=== PATIENT | male | born 1965 | race Caucasian/White ===

== ENCOUNTER → 2016-11-21 | Outpatient (CLI) | payer OTHER | LOC: BMCIMAGING 09:19 | PROVIDERS: ATTEND Podiatrist Foot & Ankle Surgery | DX: M25.571 Pain in right ankle and joints of right foot (principal) ==

== ENCOUNTER 2018-07-16 11:29 | Emergency (ER) | payer OTHER ==
--- NOTE | 2018-07-16 11:46 | EDPHY ---
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 Patient reports that he washed with soap and water. Today at work the radiology techs were concerned that he may get an infection. Denies decreased range of motion, radiation, weakness. Tetanus is current. Modifying Factors: None Comment: ROS: A comprehensive 10 system review of systems is otherwise negative aside from elements mentioned in the history of present illness. MEDICAL/SURGICAL/SOCIAL HISTORY: Medical history: Generally healthy. Does not take any regular medications. Surgical history: Denies Social history: Employed. Never smoked. CONSTITUTIONAL: Pleasant, well-developed, well-nourished adult white male, awake and alert, no obvious distress HEENT: Atraumatic and normocephalic. NECK: supple EXTREMITIES: 2/2 pulses, strength 5/5, left little finger on the pad shows 1.5 cm skin avulsion that is superficial in nature, no active bleeding. No nail involvement. DIP/PIP/MCP flexion/extension intact with good light touch sensation. no deformities, no clubbing, no cyanosis or edema. NEUROLOGICAL: no focal neuro deficits. GCS 15. Light touch sensation intact. SKIN: Warm and dry, no erythema. no rash. Good capillary refill. Source: Patient Exam Limitations: No limitations - Personal History Current Tetanus Diphtheria and Acellular Pertussis (TDAP): Yes - Medical/Surgical History Hx Asthma: No Hx Chronic Respiratory Disease: No Hx Diabetes: No Hx Cardiac Disease: No Hx Renal Disease: No Hx Cirrhosis: No Hx Alcoholism: No Hx HIV/AIDS: No Hx Splenectomy or Spleen Trauma: No Other PMH: denies - Social History Smoking Status: Never smoked Constitutional: Initial Vital Signs Temperature (C) 37.1 C 07/16/18 11:33 Heart Rate 76 07/16/18 11:33 Respiratory Rate 16 07/16/18 11:33 Blood Pressure 121/80 H 07/16/18 11:33 O2 Sat (%) 95 07/16/18 11:33 O2 Delivery Mode Room Air Allergies/Adverse Reactions: No Known Allergies Allergy (Unverified 07/16/18 11:33) Home Medications: Medication Instructions Recorded Abilify 07/16/18 Cephalexin [Keflex (*)] 500 mg PO TID #21 cap 07/16/18 Trintellix 07/16/18 buPROPion 07/16/18 Medical Decision Making ED Course/Re-evaluation: Tetanus booster is current. Local anesthesia with 1% lidocaine without epinephrine 3 mL given Copiously irrigated. Superficial Skin avulsion that is greater than 24 hr hold; laceration repair with sutures not appropriate. Placed on Keflex and Xeroform and clean sterile dressing applied. Given written and verbal wound care instructions for laceration without closure and delayed care. No signs of neurovascular compromise/tenting of skin/compartment syndrome/ extremities and joints examined above and below area of concern and are neurovascularly intact. This patient was seen under the supervision of my secondary supervising physician. I evaluated care for this patient independently. Discussed this patient with Dr. Baldwin. Differential Diagnosis: Differential diagnosis includes but is not limited to skin avulsion, laceration , foreign body, nerve injury, tendon injury. Departure - Departure Disposition: Home, Routine, Self-Care Clinical Impression: Laceration of left little finger with complication Avulsion of skin of finger without complication Qualifiers: Encounter type: initial encounter Qualified Code(s): S61.209A - Unspecified open wound of unspecified finger without damage to nail, initial encounter Condition: Good Instructions: Laceration Without Closure (ED), Skin Avulsion (ED) Additional Instructions: Keep the dressing dry and in place for 48 hours. After 48 hours, you may remove the dressing; wash the site daily with mild soap and water; then pat dry. Then apply topical antibiotic ointment and keep covered until fully healed. Take Tylenol 650 mg every 4 hours and/or Ibuprofen 600 mg every 8 hours with food as needed for pain. Take antibiotics as directed. Do not skip a dose. Return to the ER immediately if you experience redness, red streaks, have fevers /chills, flu like symptoms, limited range of motion, or any other symptoms that concern you. Referrals: [facility] [Other] - As per Instructions Prescriptions: Cephalexin [Keflex (*)] 500 mg PO TID #21 cap
[2018-07-16] MEDS ORDERED: CEPHALEXIN 500 MG CAP PO ONE (12:07)
[2018-07-16 12:26] VITALS: BP 110/79
== END 2018-07-16 12:27 | disposition home or self-care (01) ==
DX: S61.217A Laceration without foreign body of left little finger without damage to nail, initial encounter (principal); W31.2XXA Contact with powered woodworking and forming machines, initial encounter

== ENCOUNTER → 2018-10-09 | Outpatient (CLI) | payer OTHER | LOC: CIMAGING 09:14 | PROVIDERS: ATTEND Physical Medicine & Rehabilitation | DX: M25.512 Pain in left shoulder (principal) | CPT/HCPCS: 73030-PO ==